=== PATIENT | male | born 1990 | race Caucasian/White ===

== ENCOUNTER → 2021-06-23 10:00 | Outpatient (CLI) | payer OTHER, SELFPAY ==
[2021-06-23 17:26] LABS: Influenza A QL RT-PCR Negative (Negative); Influenza B QL RT-PCR Negative (Negative); SARS-CoV-2 RNA PCR Positive
== END ==
PROVIDERS: Nurse Practitioner Gerontology; PCP Family Medicine; Visit Provider Family Medicine
DX: R68.89 Other general symptoms and signs (principal); U07.1 COVID-19
CPT/HCPCS: 87502; 87804; C9803; U0003; U0005

== ENCOUNTER 2022-02-22 13:47 | Emergency (ER) | payer OTHER, SELFPAY ==
[2022-02-22] VITALS (8 sets, daily range): BP systolic 98–119; BP diastolic 64–75; PULSE 123; RESP 18; TEMP 38.6; O2SAT 97–100
--- NOTE | ~2022-02-22 | CT_ITS ---
EXAMINATION: CT abd pelvis lumbar w con DATE: 02/22/2022 16:41 INDICATION: Low back pain. Fever. TECHNIQUE: Computed tomography (CT) of the abdomen and pelvis and lumbar spine was performed with 100 mL Omnipaque 350 intravenous contrast. Automated exposure control and iterative reconstruction techn ique were employed. The dose-length product was 224.21 mGy-cm. COMPARISON: CT abdomen and pelvis 12/01/2016 FINDINGS: CT ABDOMEN AND PELVIS: The visualized portions of the lung bases are clear without pneumonia or pleur al effusion. The heart size is normal. No pericardial effusion. The liver, gallbladder, spleen, pancr eas, adrenal glands, and left kidney are normal. There is a 2 mm stone in right kidney. There are no dilated loops of bowel. The appendix is normal. There are no pathologically enlarged lymph nodes. The re is no free intraperitoneal fluid. CT LUMBAR SPINE: There is 5 degrees levocurvature of lumbar spine. Vertebral body heights and interve rtebral disc heights are normal. The following disc levels are specifically discussed: L1-L2: The disc does not extend beyond the endplate margin. There is mild bilateral facet joint osteo arthritis. There is no neural foraminal stenosis. There is no central canal stenosis. L2-L3: The disc does not extend beyond the endplate margin. There is mild bilateral facet joint osteo arthritis. There is no neural foraminal stenosis. There is no central canal stenosis. L3-L4: The disc does not extend beyond the endplate margin. There is no facet joint osteoarthritis. T here is no neural foraminal stenosis. There is no central canal stenosis. L4-L5: There is a right subarticular zone extrusion. There is no facet joint osteoarthritis. There is mild right neural foraminal stenosis. There is mild central canal stenosis. L5-S1: The disc is bulging. There is mild bilateral facet joint osteoarthritis. There is mild bilater al neural foraminal stenosis. There is mild central canal stenosis. IMPRESSION: 1. 2 mm nonobstructing right kidney stone. 2. Mild lumbar spondylosis. Reviewed, dictated and finalized at location A.
--- NOTE | ~2022-02-22 | XR_ITS ---
EXAMINATION: XR chest 2V DATE: 02/22/2022 15:31 INDICATION: Fever. TECHNIQUE: Frontal and lateral views of the chest were obtained on 3 radiographs. COMPARISON: CT abdomen and pelvis 12/01/2016 FINDINGS: The chest demonstrates clear lungs without pneumonia, pleural effusion, or pneumothorax. Th e heart size is normal. IMPRESSION: 1. No acute cardiopulmonary disease. Reviewed, dictated and finalized at location A.
--- NOTE | 2022-02-22 14:59 | ED.BACK ---
HPI - Back Pain/Injury General Chief Complaint: Back Pain/Injury Stated Complaint: herniated disc with emmanuel LE tingling/fever Time Seen by Provider: 02/22/22 14:43 History of Present Illness HPI Narrative: Patient is a 31-year-old male with a history of Crohn's presenting with fever. Patient states that he was in his normal state of health until yesterday when he started feeling generally unwell. His fianc?e checked his temperature and found it to be 102 Fahrenheit. This morning, the patient continued to experience general malaise and fever so he called his PCP who advised he come in for evaluation. Patient states that he is also having lower back pain that radiates to his rectum. He states that his groin feels numb. He denies numbness or weakness in his extremities. No difficulty walking. No bladder or bowel incontinence. States he has had some intermittent abdominal pain as well. States he had multiple episodes of vomiting this morning. He denies headache, vision changes, chest pain, cough, shortness of breath, dysuria, leg swelling. Related Data Home Medications Medication Instructions Recorded Confirmed No Home Medications 02/13/22 02/18/22 Allergies Allergy/AdvReac Type Severity Reaction Status Date / Time No Known Allergies Allergy Verified 02/22/22 13:49 Review of Systems Review of Systems: All systems reviewed & are unremarkable except as noted in HPI and below PMFSH Past Medical History Medical History Acute Crohn's disease Diarrhea Inflammatory bowel arthritis Family History Family History Other Diabetes mellitus Lung cancer Social History Social History Social History: Single Smoking packs per day: 0.5 Smoking cigarettes per day: 10.0 Years smoked: 4 Smoking pack-years: 2.00 Smoking status: Current every day smoker (E-cigarettes) Tobacco type: e-cigarettes/vaping Second hand tobacco smoke exposure: Yes Smoking end date: 01/06/20 Alcohol use details: rarely Substance use: never Substance use type: does not use Additional occupation/education comments: [employer] Gender identity (if verbalized by the patient): Male Sexual Orientation (if Verbalized by the Patient): Straight or Heterosexual Spiritual care concerns: No Exam Narrative: GENERAL: Well-appearing, well-nourished, and in no acute distress. HEAD: Normocephalic, atraumatic. EYES: PERRLA and EOMI. ENT: Nares clear, no rhinorrhea or epistaxis. Mucous membranes moist. NECK: Supple. CHEST: Clear to auscultation. No respiratory distress. HEART: Regular rate and rhythm. No murmur heard. Normal peripheral pulses. ABDOMEN: Soft, mild tenderness diffusely, nondistended, normal active bowel sounds. EXTREMITIES: Normal range of motion. No edema. SKIN: Warm, dry, no rash. NEURO: No focal deficits. Strength 5/5 all extremities, no sensory deficits.Alert and oriented x3. PSYCH: Normal mood and affect. Course Vital Signs Vital signs: Vital Signs Temperature 101.5 F H 02/22/22 13:49 Pulse Rate 123 H 02/22/22 13:49 Respiratory Rate 18 02/22/22 13:49 Blood Pressure 119/75 02/22/22 13:49 Pulse Oximetry 99 02/22/22 13:49 Oxygen Delivery Room Air 02/22/22 13:49 Temperature 101.5 F H 02/22/22 13:49 Pulse Rate 123 H 02/22/22 13:49 Respiratory Rate 18 02/22/22 13:49 Blood Pressure 98/64 L 02/22/22 18:16 Pulse Oximetry 100 02/22/22 18:15 Oxygen Delivery Room Air 02/22/22 13:49 MDM - Back Pain/Injury MDM Narrative Medical decision making narrative: Patient is a 31-year-old male presenting with fever and rectal pain. Patient is tachycardic and febrile on arrival. Exam otherwise remarkable for the above. Neurologically intact. CT abdomen pelvis shows no acute intra-abdominal abnormalities. C
[2022-02-22 16:01] LABS: Basophils Percent Auto 0.3 % (0.2-1.2); Hematocrit 36.3 % (42.0-52.0); Hemoglobin 12.4 g/dL (14.0-18.0); Immature Granulocyte Absolute 0.02 K/mm3 (0.00-0.031); Immature Granulocyte Percent A 0.3 % (0-0.5); Lymphocytes Absolute Auto 0.62 K/mm3 (0.9-3.2); Lymphocytes Percent Auto 9.2 % (18.3-44.2); Mean Corpuscular HGB Conc 34.2 g/dl (32-36); Mean Corpuscular Volume 87.7 fl (80-100); Monocytes Percent Auto 14.9 % (2.6-8.5); Neutrophils Absolute Auto 5.1 K/mm3 (1.3-6.7); Neutrophils Percent Auto 75.3 % (45.5-73.1); Platelet Count Result 188 k/mm3 (150-375); Red Blood Count 4.14 M/mm3 (4.6-6.20); Red Cell Distribution Width 12.2 % (11.5-14.5); White Blood Count 6.7 K/mm3 (4.5-10.0)
[2022-02-22 16:13] LABS: Lactic Acid Reflex 0.7 mmol/L (0.7-2.0)
[2022-02-22 16:14] LABS: Appearance Urine Clear (Clear); Bilirubin Urine Negative (Negative); Blood Urine Negative (Negative); Color Urine Yellow (Yellow); Glucose Urine UA Negative (Negative); Ketones Urine Negative (Negative); Leukocyte Esterase Ur Negative LEU/UL (Negative); Nitrate Urine Negative (Negative); Protein Urine Negative (Negative); Specific Grav Ur 1.015 (1.001-1.035); Urobilinogen Urine 0.2 mg/dL (<2.0)
[2022-02-22 16:14] LABS: Alanine Aminotransferase 27 U/L (6-50); Albumin Level 4.4 g/dL (3.5-5.1); Alkaline Phosphatase 51 U/L (38-126); Anion Gap 10 mmol/L (8-16); Aspartate Amino Transferase 23 U/L (17-59); Bilirubin,Total 0.5 mg/dL (0.2-1.3); Blood Urea Nitrogen 7 mg/dL (9-20); CRP 4.1 mg/dL (<1.0); Calcium 9.1 mg/dL (8.4-10.2); Carbon Dioxide 24 mmol/L (22-30); Chloride 98 mmol/L (98-107); Estimated CRCL calculation 113 ml/min; Estimated Glomerular Filt Rate > 60; Glucose 105 mg/dL (65-110); Potassium 3.5 mmol/L (3.4-5.0); Sodium 132 mmol/L (137-145)
[2022-02-22 16:18] LABS: RBC Urine 0-2 /hpf (0-2); WBC Urine 0-3 /hpf
[2022-02-22 16:27] LABS: Add Urine Microscopic? YES
[2022-02-22] MEDS: SODIUM CHLORIDE 0.9% IV 1,000 ML 999 ML IV CONT (16:28)
[2022-02-22] MEDS: KETOROLAC 15 MG/ML VIAL (*BKC) IV PUSH (16:29)
[2022-02-22 16:37] LABS: Influenza A QL RT-PCR Negative (Negative); Influenza B QL RT-PCR Negative (Negative); SARS-CoV-2 RNA PCR Negative
[2022-02-22] MEDS: ACETAMINOPHEN 500 MG TABLET 1000 MG PO (18:20)
== END 2022-02-22 18:22 | disposition home or self-care (01) ==
PROVIDERS: Emergency Provider Emergency Medicine; PCP Family Medicine
DX: R50.9 Fever, unspecified (principal); K50.90 Crohn's disease, unspecified, without complications; Z20.822 Contact with and (suspected) exposure to COVID-19; Z87.891 Personal history of nicotine dependence
CPT/HCPCS: 36415; 71046; 72132; 74177; 80053; 81001; 83605; 85025; 86140; 87040; 87502; 96361; 96374; 99284; A9270; C9803; J1885; J7030; Q9967; U0003; U0005

== ENCOUNTER 2022-02-26 11:27 | Day surgery (SDC) | payer OTHER, SELFPAY ==
[2021-12-26 07:39] VITALS: BMI 21.9
[2022-02-13 12:02] VITALS: BMI 21.0
[2022-02-26 11:45] VITALS: BP 116/73; PULSE 90; RESP 20; TEMP 36.7; O2SAT 100
--- NOTE | 2022-02-26 12:01 | P.PNAN_ITS ---
Anes - Initial Pre Proc Eval Procedure: Operation Date: 02/26/22 12:45 Proposed Procedures p Diagnostic Colonoscopy - Aris Gonzalez MD Date/Time: 02/26/22 12:01 Surgeon: Aris Gonzalez MD Pre Op Diagnosis: Crohns Disease Patient Data Age: 31 Gender: M Height: 1.7 m Weight: 61 kg Allergies Allergy/AdvReac Type Severity Reaction Status Date / Time No Known Allergies Allergy Verified 02/22/22 13:49 Home Medications Medication Instructions Recorded Confirmed Type No Home Medications 02/13/22 02/18/22 History Patient hx anesthesia problems: none Family hx anesthesia problems: none Results Review: All pre-operative results and documents have been reviewed as part of the pre- operative evaluation. [facility] Past Medical History Medical History Acute Crohn's disease Diarrhea Inflammatory bowel arthritis Surgical History Surgical History (Updated 02/26/22 @ 12:01 by Dennis Gómez MD) H/O colonoscopy Family History Family History Other Diabetes mellitus Lung cancer Social History Social History Social History: Single Smoking packs per day: 0.5 Smoking cigarettes per day: 10.0 Years smoked: 4 Smoking pack-years: 2.00 Smoking status: Current every day smoker (E-cigarettes) Tobacco type: e-cigarettes/vaping Second hand tobacco smoke exposure: Yes Smoking end date: 01/06/20 Alcohol use details: rarely Substance use: never Substance use type: does not use Living arrangements: with family Additional occupation/education comments: [employer] Gender identity (if verbalized by the patient): Male Sexual Orientation (if Verbalized by the Patient): Straight or Heterosexual Spiritual care concerns: No Anes - Eval Final PreProcedure Day of Procedure 02/26/22 12:01 Patient weight: normal Heart: regular rate and rhythm Lungs: clear to auscultation Airway: Mallampati scale class II Neurological: alert and oriented Last oral intake: >/= 8 hours ASA classification: II Emergent: no Anesthetic plan: proceed Anesthesia type and monitoring: general GIVS and standard monitoring Results Review: All pre-operative results and documents have been reviewed as part of the pre- operative evaluation. Informed Consent: The patient's anesthetic plan and its attendant risks and benefits were discussed with the patient/family/POA. Questions were solicited and answers provided to the satisfaction of the patient/family/POA.
[2022-02-26] MEDS: LACTATED RINGERS 1,000 ML 150 ML IV CONT (12:12)
--- NOTE | 2022-02-26 12:38 | PM.HPGS ---
History of Present Illness History of Present Illness Consent: Risks, benefits, and alternatives have been discussed and questions answered. Patient agrees to proceed with procedure. Chief complaint: Crohns Disease Narrative: Yinka Jamil is a 31 year old male with history of Crohn's diagnosed in 2016 after had colonoscopy elsewhere but he is not getting any treatment and never had biologics. Normally will have 3 soft BM's, recent ER visit for fever and back pain, no much of GI issues. Review of Systems Constitutional: Constitutional: Denies headache(s) and Denies weakness Eyes: Eyes: Denies blurry vision ENT: Reports Normal hearing present, Denies headache(s) and Denies neck pain Cardiovascular: Cardiovascular: Denies chest pain and Denies dyspnea Respiratory: Respiratory: Denies dyspnea Gastrointestinal: Gastrointestinal: Reports no additional gastrointestinal complaints Genitourinary: Genitourinary: Denies dysuria Musculoskeletal: Musculoskeletal: Denies neck pain Integumentary/Breasts: Skin/Breast: Denies dry skin Neurologic: Reports Normal hearing present, Denies headache(s) and Denies weakness Psychiatric: Psychiatric: Denies anxiety Endocrine: Endocrine: Denies change in body appearance Hematologic/Lymphatic: Hematologic/Lymphatic: Denies easy bleeding Allergic/Immunologic: Allergic/Immunologic: Denies urticaria PMFSH Past Medical History Medical History Acute Crohn's disease Diarrhea Inflammatory bowel arthritis Surgical History Surgical History (Updated 02/26/22 @ 12:01 by Dennis Gómez MD) H/O colonoscopy Family History Family History Other Diabetes mellitus Lung cancer Social History Social History Social History: Single Smoking packs per day: 0.5 Smoking cigarettes per day: 10.0 Years smoked: 4 Smoking pack-years: 2.00 Smoking status: Current every day smoker (E-cigarettes) Tobacco type: e-cigarettes/vaping Second hand tobacco smoke exposure: Yes Smoking end date: 01/06/20 Alcohol use details: rarely Substance use: never Substance use type: does not use Living arrangements: with family Additional occupation/education comments: [employer] Gender identity (if verbalized by the patient): Male Sexual Orientation (if Verbalized by the Patient): Straight or Heterosexual Spiritual care concerns: No Meds Home Medications and Allergies Home Medications Medication Instructions Recorded Confirmed Type No Home Medications 02/13/22 02/26/22 History Allergies Allergy/AdvReac Type Severity Reaction Status Date / Time No Known Allergies Allergy Verified 02/26/22 12:07 Vital Signs Vital Signs - 24 hr 02/26/22 11:45 Temperature 98.1 F Pulse Rate 90 Respiratory Rate 20 Blood Pressure 116/73 Pulse Oximetry 100 Oxygen Delivery Room Air Exam Const: General: comfortable and no acute distress HENMT: General nose exam: Normal nares present Eyes: General: appearance normal, both eyes and all related structures Neck: Neck: no JVD Resp: Auscultation: clear to auscultation bilaterally Cardio: Rate: regular rate Rhythm: regular rhythm GI: Inspection: non-distended GI Palp: Yes Soft to palpation Skin: General skin exam: normal color Neuro: General: gait normal Speech: normal speech Extrem: General: normal to inspection Psych: Mental Status: mental status grossly normal Assessment and Plan Assessment and plan (1) Crohn's disease: Code(s): K50.90 - Crohn's disease, unspecified, without complications Status: Acute Assessment and Plan: questionable, no records to review and he is not taking any med will assess with colonoscopy to see if indeed he has IBD (2) Arm pain, musculoskeletal: Code(s): M79.603 - Pain
[2022-02-26 12:55] VITALS: BP 98/56; PULSE 75; RESP 16; O2SAT 99
[2022-02-26 13:05] VITALS: BP 101/60; PULSE 67; RESP 14; O2SAT 100
[2022-02-26 13:15] VITALS: BP 104/65; PULSE 72; RESP 14; O2SAT 99
--- NOTE | 2022-02-26 13:15 | WPDANESPN ---
Anes - Prog Note Post-Op Date/Time: 02/26/22 13:15 Cardiovascular status: normal Respiratory status: normal Airway patency: baseline Mental status: baseline Post-Op hydration status: normal Vital Signs: Last Vital Signs Temp 36.7 C 02/26/22 11:45 Pulse 67 02/26/22 13:05 Resp 14 02/26/22 13:05 BP 101/60 02/26/22 13:05 Pulse Ox 100 02/26/22 13:05 O2 Del Method Room Air 02/26/22 13:05 Pain Score (VAS): 0/10 I/O: Intake & Output 02/25/22 02/26/22 02/26/22 23:59 07:59 15:59 Intake Total 400 Balance 400 Patient Feedback: Patient satisfied with anesthetic care.
== END 2022-02-26 13:47 | disposition home or self-care (01) ==
PROVIDERS: PCP Family Medicine; Visit Provider Internal Medicine Gastroenterology
PROC: 0DJD8ZZ Inspection of Lower Intestinal Tract, Via Natural or Artificial Opening Endoscopic (ICD-10-PCS; CPT 45378; principal; 2022-02-26 12:45)
DX: K50.90 Crohn's disease, unspecified, without complications (principal)
CPT/HCPCS: 45378

== ENCOUNTER 2022-03-04 07:04 | Outpatient (CLI) | payer OTHER, SELFPAY ==
--- NOTE | ~2022-03-04 | MR_ITS ---
EXAMINATION: MR cervical spine wo con DATE: 03/04/2022 07:35 INDICATION: Neck pain. TECHNIQUE: Magnetic resonance imaging (MRI) of the cervical spine was performed without intravenous c ontrast. Sequences included sagittal T2-weighted FSE, sagittal T2-weighted FS FSE, sagittal T1-weight ed FSE, axial MERGE, and axial T2-weighted FSE. COMPARISON: None FINDINGS: Bone alignment is normal. Vertebral body heights are normal. There is mildly decreased disc height at C5-C6. The spinal cord signal intensity is normal. The following disc levels are specifica lly discussed: C2-C3 through C4-C5: The disc does not extend beyond the endplate margin. There is no uncovertebral j oint osteoarthritis. There is no facet joint osteoarthritis. There is no neural foraminal stenosis. T here is no central canal stenosis. C5-C6: There is a right central protrusion. There is mild bilateral uncovertebral joint osteoarthriti s. There is no facet joint osteoarthritis. There is no neural foraminal stenosis. There is no central canal stenosis. C6-C7: There is a central protrusion. There is mild bilateral uncovertebral joint osteoarthritis. The re is no facet joint osteoarthritis. There is no neural foraminal stenosis. There is no central canal stenosis. C7-T1: The disc does not extend beyond the endplate margin. There is no uncovertebral joint osteoarth ritis. There is no facet joint osteoarthritis. There is no neural foraminal stenosis. There is no graciela tral canal stenosis. IMPRESSION: 1. Mild cervical spondylosis. Reviewed, dictated and finalized at location A.
== END 2022-03-04 07:05 ==
LOC: MICIMG 07:05
PROVIDERS: PCP Family Medicine; Visit Provider Orthopaedic Surgery
DX: M47.892 Other spondylosis, cervical region (principal)
CPT/HCPCS: 72141

== ENCOUNTER 2022-03-29 13:06 | Outpatient (CLI) | payer OTHER, SELFPAY ==
--- NOTE | ~2022-03-29 | CT_ITS ---
EXAMINATION: CT diagnostic chest w con DATE: 03/29/2022 13:29 INDICATION: Pain in the shoulders radiating to the hands, possible thoracic outlet syndrome TECHNIQUE: Transaxial computed tomographic images of the chest were obtained after the administration of 75 cc of Omnipaque 350 intravenous contrast. The dose-length product (DLP) was 164.27 mGy-cm. Ite rative reconstruction was used. COMPARISON: None FINDINGS: There is mild emphysema. The lungs are free of acute opacities. No pleural effusion or pneu mothorax. No pathologically enlarged thoracic lymph nodes are identified. The heart size is normal. T here is early opacification of the subclavian arteries which appear normal. Although slightly limited by streak artifact, the left subclavian vein appears normal. The right subclavian vein has not yet s ignificantly opacified due to timing of the contrast bolus. IMPRESSION: 1. No definite CT findings of thoracic outlet syndrome. Reviewed, dictated and finalized at location B.
== END 2022-03-29 13:07 | disposition home or self-care (01) ==
LOC: ANHIMG 13:13
PROVIDERS: PCP Family Medicine; Visit Provider Family Medicine
DX: R20.2 Paresthesia of skin (principal)
CPT/HCPCS: 71260; Q9967

== ENCOUNTER 2022-05-04 14:43 | Emergency (ER) | payer OTHER, SELFPAY ==
[2022-05-04 14:46] VITALS: BP 107/61; PULSE 97; RESP 18; TEMP 36.7; O2SAT 100
[2022-05-04 14:58] LABS: Basophils Percent Auto 0.1 % (0.2-1.2); Eosinophils Percent Auto 0.2 % (0-4.4); Hematocrit 44.8 % (42.0-52.0); Hemoglobin 15.2 g/dL (14.0-18.0); Immature Granulocyte Absolute 0.08 K/mm3 (0.00-0.031); Immature Granulocyte Percent A 0.4 % (0-0.5); Lymphocytes Absolute Auto 0.38 K/mm3 (0.9-3.2); Lymphocytes Percent Auto 2.1 % (18.3-44.2); Mean Corpuscular HGB Conc 33.9 g/dl (32-36); Mean Corpuscular Hemoglobin 30.3 pg (26-34); Mean Corpuscular Volume 89.2 fl (80-100); Mean Platelet Volume 9.7 fl (7.4-10.4); Monocytes Absolute Auto 0.8 K/mm3 (0.1-0.6); Monocytes Percent Auto 4.5 % (2.6-8.5); Neutrophils Absolute Auto 16.8 K/mm3 (1.3-6.7); Neutrophils Percent Auto 92.7 % (45.5-73.1); Platelet Count Result 306 k/mm3 (150-375); Red Blood Count 5.02 M/mm3 (4.6-6.20); Red Cell Distribution Width 12.3 % (11.5-14.5); White Blood Count 18.2 K/mm3 (4.5-10.0)
[2022-05-04 15:08] LABS: Alanine Aminotransferase 25 U/L (6-50); Albumin Level 5.1 g/dL (3.5-5.1); Alkaline Phosphatase 77 U/L (38-126); Anion Gap 12 mmol/L (8-16); Aspartate Amino Transferase 24 U/L (17-59); Bilirubin,Total 1.1 mg/dL (0.2-1.3); Blood Urea Nitrogen 15 mg/dL (9-20); Calcium 9.9 mg/dL (8.4-10.2); Carbon Dioxide 22 mmol/L (22-30); Chloride 104 mmol/L (98-107); Estimated CRCL calculation 126 ml/min; Estimated Glomerular Filt Rate > 60; Glucose 143 mg/dL (65-110); Lipase 43 U/L (23-300); Potassium 4.1 mmol/L (3.4-5.0); Sodium 138 mmol/L (137-145)
--- NOTE | 2022-05-04 15:42 | ED.ABDPAIN ---
HPI - Abdominal Pain General Chief Complaint: Abdominal Pain Stated Complaint: N/V, abd pain Time Seen by Provider: 05/04/22 15:25 History of Present Illness HPI narrative: 31-year-old male here for evaluation of nausea vomiting and diarrhea over the past day. Patient notes an epigastric cramping discomfort when he vomits. States that his fianc?e is sick with similar symptoms at home. Came to the ED because he was unable to tolerate any p.o. today. No fevers, chills, rashes, new or suspicious foods. No history of abdominal surgeries. Related Data Allergies Allergy/AdvReac Type Severity Reaction Status Date / Time No Known Allergies Allergy Verified 05/04/22 14:49 Review of Systems Review of Systems: Gen: Denies fevers or chills Eyes: Denies eye pain or visual change ENT: Denies congestion Respiratory: Denies shortness of breath or cough CV: Denies chest pain or palpitations GI: Reports abdominal pain, nausea and vomiting. denies burning, urgency, frequency or hematuria Musculoskeletal: Denies back pain or muscle pain Neuro: Denies numbness, tingling, weakness or focal weakness Skin: Denies rash Except as documented, all other systems reviewed and negative [facility] Past Medical History Medical History Acute Crohn's disease Crohn's disease Diarrhea Inflammatory bowel arthritis Surgical History Surgical History H/O colonoscopy Family History Family History Other Diabetes mellitus Lung cancer Social History Social History (Updated 04/11/22 @ 10:29 by Yudi Trimble) Social History: Single Smoking packs per day: 0.5 Smoking cigarettes per day: 10.0 Years smoked: 4 Smoking pack-years: 2.00 Smoking status: Current every day smoker (E-cigarettes) Tobacco type: e-cigarettes/vaping Second hand tobacco smoke exposure: Yes Smoking end date: 01/06/20 Alcohol intake: current Alcohol use details: rarely Substance use: never Substance use type: does not use Additional occupation/education comments: [employer] Gender identity (if verbalized by the patient): Male Sexual Orientation (if Verbalized by the Patient): Straight or Heterosexual Spiritual care concerns: No Exam Narrative: APPEARANCE: Actively vomiting yellow emesis during exam. Head: Normocephalic and atraumatic. EYES: PERRLA/EOMI, conjunctivae clear NOSE: No nasal drainage EARS: External ear normal in appearance THROAT: Oropharynx is clear. Mucous membranes are moist. NECK: Supple. No adenopathy, no masses. RESPIRATORY: Airway patent, respirations nonlabored. Clear to auscultation bilaterally, no rales, rhonchi, wheezing. CARDIOVASCULAR: Regular rate and rhythm without murmurs, rubs, or gallops. ABDOMINAL: Normoactive bowel sounds. Soft, nontender, nondistended. No rebound tenderness or guarding. MUSCULOSKELETAL: Extremities are warm and well-perfused. Moves all extremities well. No edema. NEURO: Normal speech. No focal neurologic deficits. SKIN: Skin is warm and dry. No rashes. PSYCHIATRIC: Normal affect/mood. Course Vital Signs Vital signs: Vital Signs Temperature 98.0 F 05/04/22 14:46 Pulse Rate 97 05/04/22 14:46 Respiratory Rate 18 05/04/22 14:46 Blood Pressure 107/61 05/04/22 14:46 Pulse Oximetry 100 05/04/22 14:46 Oxygen Delivery Room Air 05/04/22 14:46 Temperature 98.0 F 05/04/22 14:46 Pulse Rate 97 05/04/22 14:46 Respiratory Rate 18 05/04/22 14:46 Blood Pressure 107/61 05/04/22 14:46 Pulse Oximetry 100 05/04/22 14:46 Oxygen Delivery Room Air 05/04/22 14:46 MDM - Abdominal Pain MDM Narrative Medical decision making narrative: 31-year-old male here for evaluation of nausea vomiting and diarrhea over the past day. Patient is vomiting during exam but has no abdominal t
[2022-05-04] MEDS: ONDANSETRON INJ 4 MG/2 ML VIAL IV PUSH (15:46)
[2022-05-04] MEDS: FAMOTIDINE 20 MG/2 ML VIAL IV PUSH (15:48)
[2022-05-04 15:57] LABS: Appearance Urine Clear (Clear); Bilirubin Urine 1+ (Negative); Blood Urine Negative (Negative); Color Urine Yellow (Yellow); Glucose Urine UA Negative (Negative); Ketones Urine 2+ mg/dL (Negative); Leukocyte Esterase Ur Negative LEU/UL (Negative); Nitrate Urine Negative (Negative); Protein Urine 2+ mg/dL (Negative); Urobilinogen Urine 0.2 mg/dL (<2.0)
[2022-05-04] MEDS: LACTATED RINGERS 1,000 ML 999 ML IV CONT (16:10)
[2022-05-04 16:15] LABS: Mucus Urine Heavy /lpf; RBC Urine 0-2 /hpf (0-2); Squamous Epithelial Cell Urine Rare /hpf (Few); WBC Urine 0-3 /hpf
[2022-05-04 16:27] LABS: Add Urine Microscopic? YES
== END 2022-05-04 17:57 | disposition home or self-care (01) ==
PROVIDERS: Emergency Medicine; Emergency Provider Physician Assistant; PCP Family Medicine
DX: K52.9 Noninfective gastroenteritis and colitis, unspecified (principal); K50.90 Crohn's disease, unspecified, without complications; Z87.891 Personal history of nicotine dependence
CPT/HCPCS: 36415; 80053; 81001; 83690; 85025; 96361; 96374; 96375; 99284; J2405; J7120

== ENCOUNTER 2025-05-12 21:17 | Emergency (ER) | payer OTHER, SELFPAY ==
[2025-05-12 21:17] VITALS: BP 126/72; PULSE 78; RESP 14; TEMP 36.5; O2SAT 97
[2025-05-12 21:26] VITALS: BP 126/72; PULSE 75; RESP 19; O2SAT 97
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
--- OUTSIDE RECORDS SUMMARY | 2025-05-12 22:15 | XMS_ITS | Clinical Summary ---
Author Organization [facility] Address [address] [place] [address] Phone Care Team Providers Care Seamer Name Role Phone Unavailable Primary Care Provider Unavailabl e Allergies No known active allergies Medications No known medications Active Problems Problem Noted Date Diagnosed Date DDD (degenerative disc disease), cervical 2018 Family History Medical History Relation Name Comments Diabetes Brother Relation Name Status Comments Brother Alive Father Alive Mother Alive Sister Alive Social History Tobacco Use Types Packs/Day Years Used Date Smoking Tobacco: Former Cigarettes Smokeless Tobacco: Never Tobacco Cessation:Counseling Given: No Alcohol Use Standard Drinks/Week Comments No 0 (1 standard drink = 0.6 oz pur e alcohol) PHQ-2 Answer Date Recorded PHQ-2 Score 0 02/23/2019 Sexually Active Control Partners Comments Yes Sex and Gender Information Value Date Recorded Sex Assigned at Not on file Legal Sex Male 11:12 AM CDT Gender Identity Not on file Sexual Orientation Not on file Last Filed Vital Signs Vital Sign Reading Time Taken Comments Blood Pressure 104/64 01/05/2019 10:04 AM CDT Pulse 78 01/05/2019 10:04 AM CDT Temperature 36.6 C (97.9 F) 01/05/2019 10:04 AM CDT Respiratory Rate 14 01/05/2019 10:04 AM CDT Oxygen Saturation 97% 01/05/2019 10:04 AM CDT Inhaled Oxygen Concentration - - Weight 68.1 kg (150 lb 3.2 oz) 01/05/2019 10:04 AM CDT Height 170.2 cm (5' 7) 01/05/2019 10:04 AM CDT Body Mass Index 23.52 01/05/2019 10:04 AM CDT Plan of Treatment Health Maintenance Due Date Last Done Comments Hepatitis C Virus (HCV) Screening 1991 TdaP Immunization 1991 Varicella Immunization (1 of 2 - 13+ 2-dose series) 2004 Hepatitis B Immunization (1 of 3 - 19+ 3-dose series) 2010 Human Papillomavirus (HPV) Immunization (1 - 3-dose SCDM series) 2018 Influenza Immunization (#1) 2025 SARS-COV-2 Immunization ( - 2024- season) 2025 Respiratory Syncytial Virus (RSV) Immunization (Adult) (1 - 1-dose 75+ series) 2066 Meningococcal Immunization (ACWY) Aged Out No longer eligible based on patient's age to complete this topic Pneumococcal Immunization Combined Aged Out No longer eligible based on patient's age to complete this topic Rotavirus Immunization Aged Out No lo nger eligible based on patient's age to complete this topic Insurance [facility]
--- OUTSIDE RECORDS SUMMARY | 2025-05-12 22:15 | XMS_ITS | Clinical Summary ---
Author Organization [facility] [employer] Address [address] [place] [address] Care Team Providers Care Business Area Manager Name Role Phone Unavailable Primary Care Provider Unavailabl e Source Comments [facility] [employer]non-owned Affiliates and Associated Physician Practices is amultiple site organization consisting of ambulatory clinics and hospital sitesin [place], [place], [place] and [place]. This disclosure is being madepursuant to the Care Everywhere program and may not contain all information available regarding this patient. Last updated 18.Locally [employer] Allergies No known active allergies Medications * Be aware that medications may not be up to date on this document. Alwaysverify current medications with the patient. HYDROcodone-acet aminophen (NORCO) 5-325 MG tablet Take 1 tablet by mouth every 6 hours as needed for Pain 8 tablet 12/17/2019 Active Immunizations Immunization Administration Dates Next Due TD (ADULT), 5 LF TETANUS TOX OID, ADSORBED, PF 12/17/2019(Deferred: Discontinued by physician) TDAP (7yrs+) 12/17/2019 Social History Tobacco Use Types Packs/Day Years Used Date Smoking Tobacco: Never Smokeless Tobacco: Never Alcohol Use Standard Drinks/Week Comments Yes 0 (1 standard drink = 0.6 oz pur e alcohol) Sex and Gender Information Value Date Recorded Sex Assigned at Not on file Legal Sex Male 11:59 PM CDT Gender Identity Not on file Sexual Orientation Not on file Last Filed Vital Signs Vital Sign Reading Time Taken Comments Blood Pressure 126/75 12/17/2019 12:30 AM CDT Pulse 94 12/17/2019 12:30 AM CDT Temperature 36.2 C (97.2 F) 12/17/2019 12:02 AM CDT Respiratory Rate 18 12/17/2019 12:02 AM CDT Oxygen Saturation 94% 12/17/2019 12:30 AM CDT Inhaled Oxygen Concentration - - Weight 63.5 kg (140 lb) 12/17/2019 12:07 AM CDT Height 167.6 cm (5' 6) 12/17/2019 12:07 AM CDT Body Mass Index 22.6 12/17/2019 12:07 AM CDT Plan of Treatment Health Maintenance Due Date Last Done Comments HIV SCREENING 2006 HEPATITIS C SCREENING 07/21/2009 HEPATITIS B VACCINE (1 of 3 - 19+ 3-dose series) 2010 HPV VACCINE (1 - 3-dose SCDM series) 2018 DEPRESSION SCREENING 06/09/2024 COVID-19 VACCINE (1 - 2024-2 6 season) 2025 INFLUENZA VACCINE (#1) 2025 DTAP/TDAP/TD VACCINES (2 - T d or Tdap) 12/16/2029 12/17/2019 ZOSTER VACCINE (1 of 2) 2041 HIB VACCINE Aged Out No longer eligi ble based on patient's age to complete this topic MENINGOCOCCAL (Group B) VACC INE SHARED DECISION-MAKING Aged Out No longer eligibl e based on patient's age to complete this topic MENINGOCOCCAL GROUPS A/C/Y/W VACCINE Aged Out No longer eligible b ased on patient's age to complete this topic PNEUMOCOCCAL VACCINE Aged Out No long er eligible based on patient's age to complete this topic Insurance [facility]
--- OUTSIDE RECORDS SUMMARY | 2025-05-12 22:15 | XMS_ITS | Clinical Summary ---
Author Organization [facility] Address [address] [place] [address] Care Team Providers Care Rejector Name Role Phone Enrique Cohen MD Primary Care Provider Maury Jarrell MD Unavailable [phone] Allergies No known active allergies Medications ibuprofen 200 mg tab/cap Take 2 tablet/capsule (400 mg total) by mouth as needed for pain Tylenol combination med Active acetaminophen (TYLENOL) 500 mg tablet Take 2 tablets (1,000 mg total) by mouth every 6 (six) hours as needed for pain Active HYDROcodone-zainab taminophen (NORCO) 5-325 mg per tabletIndicatio ns:Pain Take 1 tablet by mouth every 4 (four) hours as needed for pain 42 tablet 5 Active methocarbamoL (ROBAXIN) 750 mg tablet Take 1 tablet (750 mg total) by mouth every 8 (eight) hours as needed for muscle spasms 30 tablet 5 Active Active Problems Problem Noted Date Diagnosed Date Herniated cervical disc 02/14/2025 Scapulothoracic bursitis of right shoulder 11/27 DDD (degenerative disc disease), cervical 2018 Cervical strain, acute, initial encounter 2018 Acute cervical sprain, initial encounter 019 Encounters Date Type Department Care Team Description 02/17/2025 12:42 PM CDT Anesthesia Event [facility] Operating Room [facility] [place] [address] Goldy Dee DO Salameh, Besan Mohammed, PA 02/17/2025 12:15 PM CDT - 02/17/2025 3:15 PM CDT Surgery [facility] Operating Room [address] [place] [phone] Maury Jarrell MD Left C6-7 Posterior Foraminotomy, Microdiscectomy 02/17/2025 10:23 AM CDT - 02/17/2025 4:57 PM CDT Hospital Encounter [facility] Operating Room [address] [place] [phone] Maury Jarrell MD Discharge Disposition: Discharge to home or self care 02/16/2025 12:15 PM CDT Pre-Admission Testing [facility] Pre Anesthesia Testing [address] [place] [phone] 02/14/2025 Telephone [facility] Pre Anesthesia Testing [address] [place] [phone] Iwona Mack from Last 3 Months Surgical History Surgery Date Site/Laterality Comments WISDOM TOOTH EXTRACTION Bilateral FLUORO GUIDED INJECTION SHOULDER RIGHT 07/09/2022 Right SCAPULA EXCISION 12/07/2022 - 01/06/2023 Right Bursa sac removed Medical History Medical History Date Comments Asthma Acid reflux Social History Tobacco Use Types Packs/Day Years Used Date Smoking Tobacco: Every Day Vaping Smokeless Tobacco: Never Tobacco Cessation:Ready to Q uit: Not Asked; Counseling Given: Not Answered Alcohol Use Standard Drinks/Week Comments Yes 0 (1 standard drink = 0.6 oz pur e alcohol) AUDIT-C Answer Date Recorded Q1: How often do you have a drink containing alc ohol? Monthly or less 02/16/2025 Q2: How many drinks containi ng alcohol do you have on a typical day when you are drinking? 1 or 2 02/16/2025 Q3: How often do you have si x or more drinks on one occasion? Never 02/16/2025 Personal Safety Answer Date Recorded Have you ever been in or are you currently in a harmful physical or emotional relationship or is someone making you feel afraid or unsafe? Denies 02/17/2025 Sex and Gender Information Value Date Recorded Sex Assigned at Not on file Legal Sex Male 1:53 AM PROC TECH Gender Identity Not on file Sexual Orientation Not on file Last Filed Vital Signs Vital Sign Reading Time Taken Comments Blood Pressure 127/68 02/17/2025 4:30 PM CDT Pulse 81 02/17/2025 4:42 PM CDT Temperature 36.4 C (97.5 F) 02/17/2025 3:00 PM CDT Respiratory Rate 29 02/17/2025 4:42 PM CDT Oxygen Saturation 97% 02/17/2025 4:42 PM CDT Inhaled Oxygen Concentration - - Weight 73.6 kg (162 lb 3.2 oz) 02/17/2025 11:05 AM CDT Height 170.2 cm (5' 7) 02/17/2025 11:05 AM CDT Body Mass Index 25.4 02/17/2025 11:05 AM CDT Plan of Treatment Health Maintenance Due Date Last Done Comments Depression Screening 1991 Hepatitis C Screening 1991 Varicella Vaccines (1 of 2 - 13+ 2-dose series) 2004 Hepatitis B Screening 2009 Regular Well Visit/Exam 18-64 2009 Pneumococcal vaccine <65 (1 of 2 - PCV) 2010 HPV Vaccines (1 - 3-dose SCDM series) 2018 Influenza Vaccine (#1) 2025 DTaP/Tdap/Td Vaccine (2 - Td or Tdap) 12/16/202903/2020 Procedures Procedure Name Priority Date/Time Associated Diagnosis Comments XR SPINE CERVICAL 1 VIEW IP Routine 02/17/2025 3:08 PM CDT FL FLUOROSCOPY < 1 HOUR IP Routine 02/17/2025 3:08 PM CDT MN AN PROCEDURE PLACEHOLDER Routine 02/17/2025 1:14 PM CDT MN AN ELECTIVE ENDOTRACHEAL AIRWAY Routine 02/17/2025 1:14 PM CDT LAMINECTOMY CERVICAL - POSTERIOR 02/17/2025 12:41 PM CDT Herniated cervical disc from Last 3 Months Results * XR Spine Cervical 1 View (02/17/2025 3:08 PM CDT) Anatomical Region Laterality Modality Spine N/A Computed Radiogr aphy 02/17/2025 3:14 PM CDT Impressions 02/17/2025 3:14 PM CDT 1. Intraoperative localization of the C6-C7 level. COMMENT: Please see above for additional findings. Electronically signed by: Jose Bojorquez M.D. Narrative 02/17/2025 3:14 PM CDT XR SPINE CERVICAL 1 VIEW HISTORY: Left C6-7 Posterior Foraminotomy, Microdiscectomy - Left Comparison: Cervical spine 11/19/2024 FINDINGS: One view, 2 images of the cervical spine were obtained in the operating room in the prone crosstable lateral projection. The 1st image demonstrates straightening positioning of an instrument at the level of the C6-C7 interspace. The 2nd image demonstrates an instrument positioned at the level of the posterior elements at the level of the C6-C7 disc space. Procedure Note Jose Bojorquez MD - 02/17/2025 XR SPINE CERVICAL 1 VIEW HISTORY: Left C6-7 Posterior Foraminotomy, Microdiscectomy - Left Comparison: Cervical spine 11/19/2024 FINDINGS: One view, 2 images of the cervical spine were obtained in the operating room in the prone crosstable lateral projection. The 1st image demonstrates straightening positioning of an instrument at the level of the C6-C7 interspace. The 2nd image demonstrates an instrument positioned at the level of the posterior elements at the level of the C6-C7 disc space. IMPRESSION: 1. Intraoperative localization of the C6-C7 level. COMMENT: Please see above for additional findings. Electronically signed by: Jose Bojorquez M.D. us Maury Jarrell MD IMG XR PROCEDURES Final R esult * FL Fluoroscopy < 1 Hour (02/17/2025 3:08 PM CDT) Narrative [facility] - 02/17/2025 3:08 PM CDT The images from this study are not interpreted by Radiology. Please refer to the physician's procedure / OR operative note. us Maury Jarrell MD IMG FLUOROSCOPY PROCEDURE S Final Result RAD_[facility] * MN AN ELECTIVE ENDOTRACHEAL AIRWAY, MN AN PROCEDURE PLACEHOLDER (02/17/2025 1:14 PM CDT) Narrative Jolene Camarillo CRNA - 02/17/2025 1:14 PM CDT Jolene Camarillo CRNA 02/17/2025 1:15 PM Airway Patient location: OR Urgency: elective Date/time: 02/17/2025 12:48 PM Indications for airway management: anesthesia Difficult airway: no Staff: Placed by: CHIEF DOG LICENSE INSPECTOR: Jolene Camarillo CRNA Emergent airway documentation: Risks and benefits discussed: yes Consent obtained: yes Consent given by: patient Airway prep: Preoxygenated: yes Patient position: sniffing Mask difficulty assessment: 1 - vent by mask Spontaneous ventilation during airway: absent Sedation level during airway: GA Final airway details: Final airway type: endotracheal airway Tube type: ETT ETT size: 8.0 mm Cuffed: yes Technique used for successful ETT placement: video laryngoscopy Devices/Methods used in placement: stylet and cricoid pressure Insertion site: oral Blade type: Magda Video blade type: Casas Blade size: 4 Cormack-Lehane (video): grade IIa - partial view of glottis Cuff volume: 8 mL Cuff inflated with: air ETT to teeth: 23 cm Placement verified by: auscultation and CO2 detection Airway secured with: silk tape Number of attempts: 1 us Goldy Dee DO ANESTHESIA ORDERABLES Fi nal Result from Last 3 Months Insurance [facility] [employer] [facility] [facility] H[facility]/PPO Address: [address] [place] [address] [facility] [employer] [facility] H[facility]/PPO Address[facility] [address] [place] [address] [facility] [employer] [facility] H[facility]/PPO Address: [place] [address] [facility] [address] [place] [address] [employer] Care Teams Rejector Relationship Specialty Start Date End Date Enrique Cohen MD [address] [facility] [address] [place] [address] PCP - General Family Medicine 10/12/24 [place] [address] [address] [facility] [address] [place] [address] Surgeon Neurosurgery 02/17/25
--- OUTSIDE RECORDS SUMMARY | 2025-05-12 22:15 | XMS_ITS | Clinical Summary ---
Author Organization [facility] Address [address] [place] [id number] Care Team Providers Care Theoretical Physicist Name Role Phone Nohemy Nunez MD Primary Care Provider [phone] Social History Tobacco Use Types Packs/Day Years Used Date Smoking Tobacco: Never Assessed Sex and Gender Information Value Date Recorded Sex Assigned at Not on file Legal Sex Male 12:32 PM CDT Gender Identity Not on file Sexual Orientation Not on file Plan of Treatment Health Maintenance Due Date Last Done Comments Annual Physical 1994 Hepatitis C 2009 Hepatitis B Vaccines (1 of 3 - 19+ 3-dose series) 2010 HPV Vaccines (1 - 3-dose SCD M series) 2018 COVID-19 Vaccine (2024-2 6 season) 2025 Influenza Adult (#1) 2025 DTaP, Tdap and Td Vaccines ( 2 - Td or Tdap) 12/16/2029 12/17/2019 Hepatitis A Vaccines Aged Out No long er eligible based on patient's age to complete this topic Meningococcal B Vaccine Aged Out No l onger eligible based on patient's age to complete this topic Meningococcal Vaccine Aged Out No dariana nell eligible based on patient's age to complete this topic Pneumococcal Vaccine: Pediat rics (0 to 5 Years) and At-Risk Patients (6 to 49 Years) Aged Out No longer eligi ble based on patient's age to complete this topic RSV Immunizations Under 20 Months Aged Out No longer eligible based on patient's age to complete this topic Insurance [facility] Care Teams Theoretical Physicist Relationship Specialty Start Date End Date Nohemy Nunez MD [address] [facility] [address] [place] [address] [place] [address] PCP - General FAMILY PRACTICE 01/14/22
[2025-05-12 22:25] VITALS: BP 122/76; PULSE 81; RESP 17; O2SAT 98
== END 2025-05-12 22:26 | disposition home or self-care (01) ==
LOC: ANHED 22:12
PROVIDERS: Emergency Provider Registered Nurse; PCP Family Medicine
DX: F41.9 Anxiety disorder, unspecified (principal); K50.90 Crohn's disease, unspecified, without complications
CPT/HCPCS: 99281